=== PATIENT | male | born 1985 | race Caucasian/White ===

== ENCOUNTER 2019-10-07 02:50 | Emergency (ER) | payer MEDICAID ==
[2019-10-07] MEDS ORDERED: ONDANSETRON ODT 4 MG TAB ONE (03:35)
[2019-10-07] MEDS ORDERED: METOCLOPRAMIDE 10 MG TABLET ONE (03:43)
[2019-10-07] MEDS ORDERED: LIDOCAINE HCL 1% 20 ML VIAL ONE (04:13)
[2019-10-07] MEDS ORDERED: NEOMY SULF/BACITRA/POLYMYXIN B 1 EACH PACKET TP ONE (04:19)
[2019-10-07] MEDS ORDERED: SULFAMETHOX-TMP DS 800/160 TAB ONE (04:25)
== END 2019-10-07 04:34 | disposition home or self-care (01) ==
LOC: EDH 02:50
DX: S51.832A Puncture wound without foreign body of left forearm, initial encounter (principal); J45.909 Unspecified asthma, uncomplicated; Z72.0 Tobacco use; W45.8XXA Other foreign body or object entering through skin, initial encounter; Y93.89 Activity, other specified; Y92.89 Other specified places as the place of occurrence of the external cause; Y99.8 Other external cause status
CPT/HCPCS: 73090

== ENCOUNTER 2020-04-29 21:28 | Emergency (ER) | payer MEDICAID | END 2020-04-29 22:09 | disposition home or self-care (01) | LOC: EDH 21:28 | DX: Z02.83 Encounter for blood-alcohol and blood-drug test (principal); J45.909 Unspecified asthma, uncomplicated; Z53.21 Procedure and treatment not carried out due to patient leaving prior to being seen by health care provider ==

== ENCOUNTER 2021-04-13 18:11 | Emergency (ER) | payer MEDICAID, OTHER ==
[~2021-04-13] VITALS: Ht 177.8 cm; Wt 102.1 kg
[2021-04-13 18:14] VITALS: BP 147/86
[2021-04-13] MEDS ORDERED: KETOROLAC 30MG VIAL (30MG/ML) ONE (19:23)
[2021-04-13] MEDS ORDERED: KETOROLAC 30MG VIAL (30MG/ML) IM ONE (19:30)
[2021-04-13] MEDS ORDERED: ORPH-43 PO (19:34)
[2021-04-13] MEDS ORDERED: IBUP-2070 PO (19:34)
== END 2021-04-13 19:49 | disposition home or self-care (01) ==
LOC: EDH 18:11
DX: S40.021A Contusion of right upper arm, initial encounter (principal); Z79.1 Long term (current) use of non-steroidal anti-inflammatories (NSAID); X58.XXXA Exposure to other specified factors, initial encounter; Y93.89 Activity, other specified; Y92.89 Other specified places as the place of occurrence of the external cause; Y99.8 Other external cause status
CPT/HCPCS: 73060; 96372; 99283; J1885

== ENCOUNTER 2022-03-06 12:11 | Emergency (ER) | payer OTHER ==
[~2022-03-06] VITALS: Ht 177.8 cm; Wt 95.3 kg
[~2022-03-06 12:11] MED LIST: IBUP-2070 PO; ORPH-43 PO
[2022-03-06 12:13] VITALS: BP 139/82
[2022-03-06] MEDS ORDERED: GUAIFENESIN-DM 200/20 MG 10 ML PO ONE (12:30)
[2022-03-06] MEDS ORDERED: IBUPROFEN 800 MG TAB PO ONE (12:30)
[2022-03-06] MEDS ORDERED: ACETAMINOPHEN 500 MG TABLET PO ONE (12:30)
== END 2022-03-06 14:08 | disposition home or self-care (01) ==
LOC: EDH 12:11
DX: B34.9 Viral infection, unspecified (principal); Z20.822 Contact with and (suspected) exposure to COVID-19; Z79.1 Long term (current) use of non-steroidal anti-inflammatories (NSAID)
CPT/HCPCS: 99284; 87635; 87880; 87804 ×2; C9803

== ENCOUNTER 2023-05-23 12:30 | Emergency (ER) | payer OTHER ==
[~2023-05-23] VITALS: Ht 177.8 cm; Wt 102.1 kg
[~2023-05-23 12:30] MED LIST changes: -ORPH-43 PO; +ORPH100T4 PO
[2023-05-23 14:09] VITALS: BP 176/87; PULSE 95; RESP 20
[2023-05-23 14:35] LABS: RAPID GROUP A STREP negative (NEGATIVE)
[2023-05-23 14:42] LABS: SARS-CoV-2, RNA, NAAT NEGATIVE SARS CoV-2 (NEGATIVE)
[2023-05-23 14:47] LABS: INFLUENZA TYPE A Negative For Type A (NEGATIVE); INFLUENZA TYPE B Negative For Type B (NEGATIVE)
[2023-05-23] MEDS ORDERED: AMOX1TAB16 PO (16:58)
[2023-05-23] MEDS ORDERED: BENZ-39 PO (16:58)
[2023-05-23] MEDS ORDERED: IBUP-2077 PO (16:58)
[2023-05-23] MEDS ORDERED: AMOX/CLAV 875/125MG TAB PO ONE (17:00)
[2023-05-23] MEDS ORDERED: IBUPROFEN 800 MG TAB PO ONE (17:00)
== END 2023-05-23 17:43 | disposition home or self-care (01) ==
LOC: EDH 12:30
DX: J32.0 Chronic maxillary sinusitis (principal); B34.9 Viral infection, unspecified; J02.9 Acute pharyngitis, unspecified; F32.A Depression, unspecified; Z20.822 Contact with and (suspected) exposure to COVID-19; Z79.899 Other long term (current) drug therapy; Z98.890 Other specified postprocedural states
CPT/HCPCS: 87635; 87804; 87880

== ENCOUNTER 2023-08-30 10:25 | Emergency (ER) | payer OTHER ==
[~2023-08-30] VITALS: Ht 177.8 cm; Wt 103.0 kg
[~2023-08-30 10:25] MED LIST changes: +AMOX1TAB16 PO; +BENZ-39 PO; +IBUP-2077 PO
[2023-08-30 10:28] VITALS: BP 157/87; PULSE 86; RESP 18; O2SAT 96
[2023-08-30] MEDS: TETANUS/DIPHTHERIA TOXOID [ADULT] 0.5 ML VIAL IM ONE (11:47)
[2023-08-30 15:18] LABS: HIV 1&2 ANTIBODY Non-Reactive (Negative); HIV-1 p24 Antigen Non-Reactive (Negative)
[2023-08-31 04:17] LABS: HEPATITIS B CORE AB TOTAL Non-Reactive (Nonreactive); HEPATITIS C ANTIBODY Non-Reactive (Nonreactive)
[2023-09-01 15:10] LABS: HEPATITIS B SURFACE ANTIBODY Positive (Reactive)
== END 2023-08-30 12:02 | disposition home or self-care (01) ==
LOC: EDH 10:25
DX: S61.233A Puncture wound without foreign body of left middle finger without damage to nail, initial encounter (principal); X58.XXXA Exposure to other specified factors, initial encounter; Y93.89 Activity, other specified; Y92.89 Other specified places as the place of occurrence of the external cause; Y99.8 Other external cause status; Z79.899 Other long term (current) drug therapy; Z98.890 Other specified postprocedural states
CPT/HCPCS: 36415; 86701; 86704; 86706; 86803; 87390; 90471; 90714

== ENCOUNTER 2024-01-12 11:52 | Emergency (ER) | payer OTHER ==
[~2024-01-12] VITALS: Ht 177.8 cm; Wt 95.3 kg
[2024-01-12] MEDS: cefTRIAXone 1G VIAL IVPB ONE (13:14)
[2024-01-12] MEDS ORDERED: SULF1TAB42 PO (13:39)
[2024-01-12 13:50] VITALS: BP 123/78; PULSE 78; RESP 18; TEMP 98.2; O2SAT 98
== END 2024-01-12 13:48 | disposition home or self-care (01) ==
LOC: EDH 11:52
DX: M70.22 Olecranon bursitis, left elbow (principal); Z79.899 Other long term (current) drug therapy; Z98.890 Other specified postprocedural states; Y93.89 Activity, other specified
CPT/HCPCS: 99284; 96365; J0696

== ENCOUNTER 2024-01-15 12:29 | Inpatient (IN) | payer OTHER ==
[~2024-01-15] VITALS: Ht 177.8 cm; Wt 94.1 kg
[~2024-01-15 12:29] MED LIST changes: +SULF1TAB42 PO
[2024-01-15 13:18] LABS: BASOPHILS % (AUTO) 1.1 % (0.0-5.0); EOSINOPHILS # (AUTO) 0.44 K/uL (0.00-0.70); EOSINOPHILS % (AUTO) 4.8 % (0.0-8.0); HEMATOCRIT 52.7 % (42-54); IMMATURE GRANULOCYTE ABSOLUTE 0.03 K/uL (0-1); LYMPHOCYTES # (AUTO) 1.6 K/uL (1.0-4.8); LYMPHOCYTES % (AUTO) 16.8 % (21.0-51.0); MEAN CORPUSCULAR HEMOGLOBIN 31.3 pg (27.0-33.0); MEAN CORPUSCULAR HGB CONC 34.2 g/dL (32.0-36.0); MEAN CORPUSCULAR VOLUME 91.7 fL (79-99); MONOCYTES # (AUTO) 0.9 K/uL (0.1-1.0); MONOCYTES % (AUTO) 9.2 % (3.0-13.0); NEUTROPHILS # (AUTO) 6.3 K/uL (1.8-7.7); NEUTROPHILS % (AUTO) 67.8 % (40.0-77.0); PLATELET COUNT (AUTO) 243 K/uL (130-400); RED BLOOD CELL COUNT(AUTO) 5.75 MIL/uL (4.50-6.20); RED CELL DISTRIBUTION WIDTH 13.4 % (11.0-15.5); WHITE BLOOD COUNT (AUTO) 9.2 K/uL (4.8-10.8)
[2024-01-15 13:20] VITALS: BP 134/78; PULSE 73; RESP 18; TEMP 98
[2024-01-15 13:24] LABS: INR 0.98 (0.85-1.15); PROTHROMBIN TIME 10.6 SEC (9.6-11.6)
[2024-01-15] MEDS ORDERED: DiphenhydrAMINE HCL 25 MG CAPSULE PO PRN (13:30)
[2024-01-15] MEDS ORDERED: HYDROcodone/APAP 5/325 1 TAB TABLET PO PRN ×2 (13:30)
[2024-01-15] MEDS ORDERED: MAG/ALUM/SIMETH 30 ML UDCUP PO PRN (13:30)
[2024-01-15] MEDS ORDERED: FAMOTIDINE 20MG VIAL IV PRN (13:30)
[2024-01-15] MEDS ORDERED: NITROGLYCERIN 0.4 MG SL TAB SL PRN (13:30)
[2024-01-15] MEDS ORDERED: ondanSETRON 4MG INJ IV PRN (13:30)
[2024-01-15] MEDS ORDERED: guaiFENesin-DM 200/20MG 10ML PO PRN (13:30)
[2024-01-15] MEDS ORDERED: DiphenhydrAMINE HCL 50 MG/ML VIAL IV PRN (13:30)
[2024-01-15] MEDS ORDERED: acetaMINOPHEN 325 MG TAB PO PRN (13:30)
[2024-01-15] MEDS ORDERED: hydroMORPHone 0.5 MG SYG (0.5MG/0.5ML) IVP PRN (13:30)
[2024-01-15] MEDS ORDERED: LACTULOSE 20 GM/30 ML UDCUP PO PRN (13:30)
[2024-01-15 13:31] LABS: HEMOGLOBIN A1C 4.7 % (4.0-6.0)
[2024-01-15 13:32] LABS: % IRON SATURATION 31.2 % (30-44)
[2024-01-15 13:41] LABS: ALBUMIN 4.1 g/dL (3.5-5.0); BILIRUBIN,TOTAL 0.5 mg/dL (0.2-1.0); CREATININE 1.2 mg/dL (0.5-1.3); PHOSPHORUS 2.9 mg/dL (2.5-4.9); THYROID STIMULATING HORMONE 3.38 uIU/mL (0.36-3.74); TOTAL PROTEIN, SERUM 7.7 g/dL (6.0-8.3)
[2024-01-15 14:03] LABS: MAGNESIUM 1.7 mg/dL (1.80-2.40)
[2024-01-15] MEDS: ZOSYN 3.375GM+NS 50ML 50 ML IV SCH (14:48)
[2024-01-15] MEDS: 0.9%NACL 1000ML 1,000 ML IV SCH (14:48)
[2024-01-15] MEDS: acetaMINOPHEN 325 MG TAB PO PRN (15:00)
[2024-01-15 16:00] VITALS: BP 153/74; PULSE 73; RESP 18; TEMP 98
[2024-01-15] MEDS: MAGNESIUM 2GM PREMIX 50ML 50 ML IV PRN (18:38)
[2024-01-15 20:00] VITALS: BP 137/86; PULSE 74; RESP 18; TEMP 97.7; O2SAT 96
[2024-01-15] MEDS: FAMOTIDINE 20MG TAB PO SCH (20:48)
[2024-01-15] MEDS: ketOROlac 15MG/ML VIAL (15MG/ML) IV PRN (23:07)
[2024-01-16] VITALS (7 sets, daily range): BP systolic 111–148; BP diastolic 64–91; PULSE 61–76; RESP 18–20; TEMP 97.7–98.3; O2SAT 96–97
[2024-01-16] MEDS: ENOXAPARIN SODIUM 40 MG/0.4 ML SYRINGE SQ SCH (09:00)
[2024-01-17] VITALS: BP 128/71; PULSE 71; RESP 18; TEMP 97.6
[2024-01-17 04:00] VITALS: BP 122/77; PULSE 71; RESP 18; TEMP 97.7
[2024-01-17 08:00] VITALS: BP 125/74; PULSE 61; RESP 18; TEMP 98; O2SAT 97
[2024-01-17] MEDS ORDERED: LEVO-70 PO (11:20)
== END 2024-01-17 14:15 | disposition home or self-care (01) | DRG 603 ==
LOC: EDH 12:29 → EDHIP 13:14 → 4CH 13:20
PROVIDERS: ADMIT Internal Medicine; ATTEND Internal Medicine
PROC: 0R9M3ZZ Drainage of Left Elbow Joint, Percutaneous Approach (ICD-10-PCS; principal; 2024-01-15)
DX: L03.114 Cellulitis of left upper limb (principal)
CPT/HCPCS: 36415; 73070; 76882; 80053; 83036; 83540; 83550; 83605; 83735; 84100; 84145; 84443; 85025; 85610; 85730; 87040; G0378; J1650; J1885; J2543; J3475

== ENCOUNTER → 2024-02-16 | Outpatient (CLI) | payer OTHER ==
[~2024-02-16] MED LIST changes: -AMOX1TAB16 PO; -BENZ-39 PO; -IBUP-2070 PO; -IBUP-2077 PO; +LEVO-70 PO; -ORPH100T4 PO; -SULF1TAB42 PO
[2024-02-16 08:01] LABS: BASOPHILS # (AUTO) 0.11 K/uL (0.00-0.20); BASOPHILS % (AUTO) 0.9 % (0.0-5.0); EOSINOPHILS # (AUTO) 0.36 K/uL (0.00-0.70); EOSINOPHILS % (AUTO) 3.1 % (0.0-8.0); HEMATOCRIT 52.2 % (42-54); IMMATURE GRANULOCYTE ABSOLUTE 0.06 K/uL (0-1); LYMPHOCYTES # (AUTO) 1.5 K/uL (1.0-4.8); LYMPHOCYTES % (AUTO) 12.5 % (21.0-51.0); MEAN CORPUSCULAR HEMOGLOBIN 31.4 pg (27.0-33.0); MEAN CORPUSCULAR HGB CONC 34.3 g/dL (32.0-36.0); MEAN CORPUSCULAR VOLUME 91.6 fL (79-99); MONOCYTES # (AUTO) 0.9 K/uL (0.1-1.0); MONOCYTES % (AUTO) 7.9 % (3.0-13.0); NEUTROPHILS # (AUTO) 8.7 K/uL (1.8-7.7); NEUTROPHILS % (AUTO) 75.1 % (40.0-77.0); PLATELET COUNT (AUTO) 244 K/uL (130-400); RED CELL DISTRIBUTION WIDTH 12.9 % (11.0-15.5); WHITE BLOOD COUNT (AUTO) 11.6 K/uL (4.8-10.8)
[2024-02-16 08:17] LABS: HEMOGLOBIN A1C 4.9 % (4.0-6.0)
[2024-02-16 08:46] LABS: ALANINE AMINOTRANSFERASE 35 U/L (12-78); ALBUMIN 4.1 g/dL (3.5-5.0); ASPARTATE AMINOTRANSFERASE 26 U/L (10-37); BILIRUBIN,TOTAL 0.6 mg/dL (0.2-1.0); CARBON DIOXIDE 27 mmol/L (21-32); CHLORIDE 103 mmol/L (101-111); CHOLESTEROL 168 mg/dL (<200); CREATININE 1.2 mg/dL (0.5-1.3); GLOMERULAR FILTR. RATE CALC 80 mL/min (>90); GLUCOSE,RANDOM 94 mg/dL (70-105); HDL CHOLESTEROL 38 mg/dL (29-71); LDL DIRECT 110 mg/dL (0-99); POTASSIUM 4.1 mmol/L (3.5-5.1); SODIUM SERUM 137 mmol/L (136-145); THYROID STIMULATING HORMONE 4.03 uIU/mL (0.36-3.74); TOTAL PROTEIN, SERUM 7.5 g/dL (6.0-8.3); TRIGLYCERIDES 223 mg/dL (30-200); UREA NITROGEN, BLOOD 16 mg/dL (7-18); URIC ACID 6.6 mg/dL (2.6-7.2)
[2024-02-16 09:22] LABS: ERYTHROCYTE SEDIMENTATION RATE 1 MM/HR (0-15)
[2024-02-17 07:21] LABS: RHEUMATOID ARTHRITIS FACTOR <10.0 IU/mL (<14.0)
== END | disposition home or self-care (01) ==
LOC: LAB 07:17
PROVIDERS: ATTEND Internal Medicine
DX: M70.22 Olecranon bursitis, left elbow (principal)
CPT/HCPCS: 36415; 80053; 80061; 82306; 82607; 83036; 84402; 84403; 84443; 84550; 85025; 85651; 86038; 86140; 86215; 86235; 86431

== ENCOUNTER 2024-04-05 05:57 | Day surgery (SDC) | payer OTHER ==
[2024-04-02 12:01] LABS: BASOPHILS # (AUTO) 0.11 K/uL (0.00-0.20); BASOPHILS % (AUTO) 1.6 % (0.0-5.0); EOSINOPHILS # (AUTO) 0.41 K/uL (0.00-0.70); EOSINOPHILS % (AUTO) 6.1 % (0.0-8.0); HEMATOCRIT 47.6 % (42-54); IMMATURE GRANULOCYTE ABSOLUTE 0.02 K/uL (0-1); LYMPHOCYTES # (AUTO) 2.3 K/uL (1.0-4.8); LYMPHOCYTES % (AUTO) 34.6 % (21.0-51.0); MEAN CORPUSCULAR HEMOGLOBIN 31.4 pg (27.0-33.0); MEAN CORPUSCULAR HGB CONC 34.2 g/dL (32.0-36.0); MEAN CORPUSCULAR VOLUME 91.7 fL (79-99); MONOCYTES # (AUTO) 0.7 K/uL (0.1-1.0); MONOCYTES % (AUTO) 9.9 % (3.0-13.0); NEUTROPHILS # (AUTO) 3.2 K/uL (1.8-7.7); NEUTROPHILS % (AUTO) 47.5 % (40.0-77.0); PLATELET COUNT (AUTO) 259 K/uL (130-400); RED BLOOD CELL COUNT(AUTO) 5.19 MIL/uL (4.50-6.20); RED CELL DISTRIBUTION WIDTH 12.3 % (11.0-15.5); WHITE BLOOD COUNT (AUTO) 6.7 K/uL (4.8-10.8)
[2024-04-02 12:07] LABS: INR 1.03 (0.85-1.15); PROTHROMBIN TIME 11.1 SEC (9.6-11.6)
[2024-04-02 12:08] LABS: PARTIAL THROMBOPLASTIN TIME 27.6 SEC (26.3-35.5)
[2024-04-04 15:44] VITALS: BP 146/72; PULSE 53; RESP 16; TEMP 97.8
[2024-04-05] VITALS (14 sets, daily range): BP systolic 103–126; BP diastolic 57–72; PULSE 52–65; RESP 14–18; TEMP 97.3–98.2
[~2024-04-05] VITALS: Ht 177.8 cm; Wt 93.0 kg
[~2024-04-05 05:57] MED LIST changes: -LEVO-70 PO; +VITAMIN D PO
[2024-04-05] MEDS ORDERED: ondanSETRON 4MG INJ ONE (06:42)
[2024-04-05] MEDS ORDERED: rocuRONium bROMide 10MG/1ML 5ML VL ONE (06:42)
[2024-04-05] MEDS ORDERED: MIDAZOLAM HCL 1 MG/ML 2ML VIAL ONE ×2 (06:42→07:30)
[2024-04-05] MEDS ORDERED: proPOFol 10 MG/ML 20ML VIAL IV ONE (06:42)
[2024-04-05] MEDS ORDERED: dexaMETHasone SOD PHOSPHATE 10MG/ML 1ML VIAL ONE (06:43)
[2024-04-05] MEDS ORDERED: FENTanyl CITRate PF 50 MCG/1 ML 2ML VIAL ONE ×2 (06:43→09:12)
[2024-04-05] MEDS ORDERED: FAMOTIDINE 20MG VIAL IV ONE (06:53)
[2024-04-05] MEDS ORDERED: acetaMINOPHEN 100 ML ONE (06:53)
[2024-04-05] MEDS ORDERED: KETO10TA2 PO (07:27)
[2024-04-05] MEDS: ceFAZolin SODIUM 2 GM VIAL ONE (08:29)
[2024-04-05] MEDS: LACTATED RINGERS 1000ML 1,000 ML IV ONE (08:30)
[2024-04-05] MEDS: MEPERIDINE-PF 25 MG/ML SYG ONE (09:42)
--- NOTE | 2024-04-05 10:50 | NUR ---
arrives A & O x4, denies distress, VSS, left arm axilla block, ice pack applied. left elbow telfa dsg covered w op-site, C,D & I. Left arm sling suplied, follow up & D?C instructs verbalized as understood per pt/ significant other at bedside. distal [employer] brisk, all belongings at bedside. PIV HL dc'd w tip intact, denies question or necessity. via w/c to friends car & care in no noted or verbalized distress at 1050.
--- NOTE | 2024-04-05 17:24 | OP ---
Operative Note: DATE OF PROCEDURE: 04/05/24 SURGEON: NATASHA STARR MD BOOK EDITOR: Jordyn Abraham ANESTHESIA: General and axillary block ANESTHESIOLOGIST/BI DATA ARCHITECT: Bimal Gillespie CRNA PREOPERATIVE DIAGNOSIS: Left elbow olecranon bursitis POSTOPERATIVE DIAGNOSIS: Left elbow olecranon bursitis PROCEDURE: Left olecranon bursectomy ESTIMATED BLOOD LOSS: <5 cc INDICATIONS: 38-year-old male with recent history of septic left olecranon bursitis. After management of this with antibiotics, the patient had residual mild swelling but mostly painful palpable tissue in the region of the olecranon bursa. After discussion of the risks, benefits, and alternatives the patient voluntarily agreed to undergo the aforementioned procedure indicating in preoperative holding the regions in the right arm that were bothersome. DESCRIPTION OF PROCEDURE: Patient was properly identified in the preoperative holding area. Surgical site marking was verified and surgery consent reviewed. The patient was then taken to the operating room and placed in supine position on the OR table. After induction of general anesthesia, preoperative antibiotics were given, all bony prominences were well-padded, and a well padded tourniquet was applied but not inflated at this time. The left upper extremity was then prepped and draped in usual sterile fashion. Surgical time out was done veri fying correct surgery, side, site, and location to be performed. We then began the procedure by exsanguinating the arm with an Esmarch and inflating the tourniquet to 250 mm Hg. We then made an approximately 6 cm long posterior midline incision, cheating slightly anteriorly in the region of the ulnar nerve, using a 15 blade. Here we came sharply down through the skin and subcutaneous tissue onto the olecranon bursa. We began elevating the flaps anteriorly and posteriorly using the Metzenbaum scissors, releasing the bursal tissue from the skin and subcutaneous layer with tenotomies. Once we came around the bursa in this manner we then began elevating it off of the fascia and periosteum of the ulna using a combination of tenotomies and 15 blade. We were able to excise a discrete mass but also tissue that appeared to be bursal tissue with the appearance of some thicker scar tissue inside. The bursa appeared to be about 3 x 3 x 3 cm. At this point we thoroughly irrigated out the wound with normal saline. The subcutaneous tissue was closed using 2-0 Vicryl. A running subcuticular 3-0 Monocryl for the skin with Dermabond applied over the top. Sterile soft dressing was applied. The tourniquet was then deflated. The patient was awakened from anesthesia and taken to the recovery room in stable condition. NATASHA STARR MD Apr 05, 2024 17:24
== END 2024-04-05 10:50 | disposition home or self-care (01) ==
LOC: DAH 05:57
PROVIDERS: ATTEND Student in an Organized Health Care Education/Training Program
DX: M70.22 Olecranon bursitis, left elbow (principal); K21.9 Gastro-esophageal reflux disease without esophagitis; Z79.01 Long term (current) use of anticoagulants; Z79.899 Other long term (current) drug therapy; Z80.7 Family history of other malignant neoplasms of lymphoid, hematopoietic and related tissues; Z82.3 Family history of stroke; Z87.891 Personal history of nicotine dependence; Z98.890 Other specified postprocedural states
CPT/HCPCS: 80048; 85025; 85610; 85730; 36415; 24105; 64415; 88304; A4663; J7120 ×2; J3490 ×2; J3010 ×2; J1100; J2250; J2704; J2405; J2175; J0690; A4649; A4930 ×2; A4215; A4213; A4222; A4221; A4216; A4223 ×2; A4600

== ENCOUNTER → 2024-04-24 | Outpatient (CLI) | payer OTHER ==
[~2024-04-24] MED LIST changes: +KETO10TA2 PO
[2024-04-24 10:50] LABS: BASOPHILS % (AUTO) 0.9 % (0.0-5.0); EOSINOPHILS # (AUTO) 0.32 K/uL (0.00-0.70); HEMATOCRIT 45.3 % (42-54); IMMATURE GRANULOCYTE ABSOLUTE 0.05 K/uL (0-1); LYMPHOCYTES # (AUTO) 2.2 K/uL (1.0-4.8); LYMPHOCYTES % (AUTO) 20.6 % (21.0-51.0); MEAN CORPUSCULAR HEMOGLOBIN 30.7 pg (27.0-33.0); MEAN CORPUSCULAR HGB CONC 34.2 g/dL (32.0-36.0); MEAN CORPUSCULAR VOLUME 89.7 fL (79-99); MONOCYTES # (AUTO) 0.8 K/uL (0.1-1.0); MONOCYTES % (AUTO) 7.1 % (3.0-13.0); NEUTROPHILS # (AUTO) 7.4 K/uL (1.8-7.7); NEUTROPHILS % (AUTO) 67.9 % (40.0-77.0); PLATELET COUNT (AUTO) 280 K/uL (130-400); RED BLOOD CELL COUNT(AUTO) 5.05 MIL/uL (4.50-6.20); RED CELL DISTRIBUTION WIDTH 12.4 % (11.0-15.5); WHITE BLOOD COUNT (AUTO) 10.8 K/uL (4.8-10.8)
[2024-04-24 12:16] LABS: ERYTHROCYTE SEDIMENTATION RATE 5 MM/HR (0-15)
[2024-04-24 13:21] LABS: HEMOGLOBIN A1C 5.4 % (4.0-6.0)
[2024-04-24 14:48] LABS: ALBUMIN 4.2 g/dL (3.5-5.0); BILIRUBIN,TOTAL 0.5 mg/dL (0.2-1.0); POTASSIUM 3.8 mmol/L (3.5-5.1); THYROID STIMULATING HORMONE 1.64 uIU/mL (0.36-3.74); TOTAL PROTEIN, SERUM 7.5 g/dL (6.0-8.3); URIC ACID 6.5 mg/dL (2.6-7.2)
[2024-04-25 08:12] LABS: RHEUMATOID ARTHRITIS FACTOR <10.0 IU/mL (<14.0)
== END | disposition home or self-care (01) ==
LOC: LAB 09:48
PROVIDERS: ATTEND Internal Medicine
DX: Z13.1 Encounter for screening for diabetes mellitus (principal); Z13.220 Encounter for screening for lipoid disorders; Z13.29 Encounter for screening for other suspected endocrine disorder; M70.22 Olecranon bursitis, left elbow; R53.83 Other fatigue
CPT/HCPCS: 36415; 80053; 80061; 82306; 82607; 83036; 84402; 84403; 84443; 84550; 85025; 85651; 86038; 86140; 86215; 86235; 86431

== ENCOUNTER 2024-05-05 08:54 | Emergency (ER) | payer OTHER ==
[~2024-05-05] VITALS: Ht 177.8 cm; Wt 92.8 kg
[2024-05-05] MEDS: ORPHENADRINE 60MG/2ML IM ONE (09:20)
[2024-05-05] MEDS: ketOROlac 30MG VIAL (30MG/ML) IM ONE (09:20)
--- NOTE | 2024-05-05 09:24 | ERN ---
General Chief Complaint: Knee Injury/Swelling Stated Complaint: RIGHT KNEE INJURY Time Seen by MD: 08:56 Source: patient History of Present Illness Initial Comments Patient is a 39-year-old male coming in to be evaluated for right knee pain. Per patient he has had a history of a patellar dislocation was evaluated by Dr. Escalante in his pending further evaluation. Per patient this flare-up has been ongoing for four days. He states that it is painful on flexion and extension. Allergies: Coded Allergies: No Known Drug Allergies (Unverified Allergy, Unknown, 04/13/21) Home Meds Active Scripts Methocarbamol (Robaxin) 750 Mg Tab, 1 TAB PO BID for 7 Days, #14 TAB 0 Refills Prov:BHAVESH THOMPSON MD 05/05/24 Naproxen (Naproxen) 375 Mg Tablet.dr, 375 MG PO BID for 10 Days, #20 TAB Prov:BHAVESH THOMPSON MD 05/05/24 Ketorolac Tromethamine (Ketorolac Tromethamine) 10 Mg Tablet, 1 TAB PO Q6HPRN PRN for pain for 5 Days, #20 TAB 0 Refills Prov:NATASHA ESCALANTE MD 04/05/24 Reported Medications [Vitamin D] No Conflict Check, 28099 UNIT PO WEEKLY 04/04/24 Past Medical History Past Medical History: No Pertinent History Past Surgical History: Other Surgical History Other: SEPTUM REPAIR Family History Family History: Negative Social History Social History: Lives with family ROS Dictation CONSTITUTIONAL: No chills, no fever, no weakness, no diaphoresis, no malaise. HEAD/FACE: No signs of trauma. EENT: No eye pain, no blurred vision, no tearing, no double vision, no ear pain, no ear discharge, no nose pain, no nasal congestion, no throat pain, no throat swelling, no mouth pain. RESPIRATORY: No cough, no orthopnea, no SOB, no stridor, no wheezing. CARDIOVASCULAR: No chest pain, no edema, no palpitations, no syncope. GASTROINTESTINAL/ABDOMINAL: No abdominal pain, no constipation, no diarrhea, no nausea, no vomiting. GENITOURINARY: No abnormal discharge, no dysuria, no frequent urination, no hematuria. No complaints of pain in the genitals. MUSCULOSKELETAL: No back pain, no gout, joint pain, joint swelling, no muscle pain, no muscle stiffness, no neck pain. INTEGUMENTARY: No change in color, no change in hair/nails, no dryness, no lesion, no lumps, no rash. NEUROLOGICAL/PSYCH: No anxiety, not depressed, no emotional problem, no headache, no numbness, no pre-existing deficit, no history of seizures, no tremors, no weakness. HEMATOLOGIC/LYMPHATIC: Not anemic, no history of blood clots, no apparent bleeding, no bruising, glands not swollen. All Systems Negative, Except as Noted. Physical Exam Physical Exam Dictation VITAL SIGNS: Reviewed. GENERAL APPEARANCE: Alert, oriented x3, no acute distress, obese. HEAD AND FACE: Non-traumatic. EYES: PERRL, pink conjunctivas, eyelid no trauma, anterior chamber clear. EARS: Pinnas intact and no signs of trauma or erythema. Ear canals clear and no discharge. TMs no erythema. NOSE: No discharge, no bleeding. OROPHARYNX: Mouth normal, teeth no caries, tongue pink. Pharynx clear, no erythema. Tonsils no exudates, no abscesses noted. Mucous membrane moist. NECK: Supple, non-tender, no thyromegaly, no masses, no JVD, no bruits. BREAST: Deferred. CHEST: No tenderness, no crepitus, no paradoxical movement, no retractions. LUNGS: Clear, well-ventilated, symmetric, no rales, no wheezing, no rhonchi, no stridor, good breath sounds bilaterally. HEART: Regular rate, regular rhythm, no murmur, no gallops. VASCULAR: No peripheral edema. ABDOMEN: Soft, positive bowel sounds, nondistended, no guarding, nontender, no rebound, no masses no hepatomegaly, no splenomegaly, no Mayberry's sign, no hernias. RECTAL: Deferred. GENITAL: Deferred. NEUROLOGICAL: Normal speech, gross motor function intact, gross sensory function intact. MUSCULOSKELETAL: Neck nontender, full range of motion, back nontender, full range of motion. EXTREMITIES: Nontender, full range of motion. Right knee pain on palpation of the lateral aspect, patella in place SKIN: Color pink, dry, no turgor, no rash, no lacerations, no abrasions, no contusions. LYMPHATICS: Deferred. Results Laboratory and Microbiology Labs Reviewed?: Yes EKG/XRAY/US/CT/MRI X-RAY Comment [facility] [id number] [place] [address] IMAGING REPORT Signed PATIENT: YO GARAY MR#: [id number] : 1985 SEX: M AGE: 39 LOCATION: [facility] ORDER 6 STATUS: REG ER REPORT#: [id number] SERVICE 5 REASON: pain ORDERING PHYSICIAN: BHAVESH THOMPSON MD PROCEDURE: KNEE 3V RT - KNEE 3VWS RT KNEE 3VWS RT REASON: pain TECHNIQUE: 3 views were obtained. FINDINGS: There is no evidence of fracture or dislocation. There is no joint effusion. The soft tissues appear unremarkable. There is no evidence of a radiopaque foreign body. IMPRESSION: No acute findings. DICTATED BY: KURT JORGE MD DATE: 05/05/24949 ELECTRONICALLY SIGNED BY: KURT JORGE MD DATE: 05/05/24954 MDM MDM: Differential diagnosis: Right patellar dislocation, knee dislocation, knee strain, meniscus tear, Patient is a 39-year-old male coming in to be evaluated for right knee pain. X- ray did not disclose acute findings. Knee immobilizer in place. Patient states he has a follow up visit with Dr. Escalante the docket specialist. Because of the side called Dr. Escalante but was not able to get a hold ever since he was in surgery. Patient will follow up with Dr. Escalante for ongoing management and possible MRI in the future. I also advised rice technique to help with the inflammation. ED Course Orders Procedure Category Date Status Time Orphenadrine Citrate PHA 05/05/24 Complete (Norflex) 09:30 Ketorolac PHA 05/05/24 Complete Tromethamine 30mg/Ml 09:30 Knee Immobilizer BIPIN 05/05/24 In Process 09:07 Knee 3vws Rt RAD 05/05/24 Resulted 09:06 Current Medications Medications (Trade) Dose Ordered Sig/Turner Route PRN Reason Start Time Stop Time Status Last Admin Dose Admin Ketorolac Tromethamine (toRADol) 30 mg ONCE ONCE IM 05/05/24 09:30 05/05/24 09:31 DC 05/05/24 09:20 Orphenadrine Citrate (Norflex) 60 mg ONCE ONCE IM 05/05/24 09:30 05/05/24 09:31 DC 05/05/24 09:20 Vital Signs Date Time Temp Pulse Resp B/P (MAP) Pulse Ox O2 Delivery O2 Flow Rate FiO2 05/05/24 09:07 98.4 78 18 145/83 100 Room Air* 0 05/05/24 08:56 98.2 68 16 135/76 98 Room Air* 0 05/05/24 08:55 68 16 135/76 100 Room Air 0 DX & DISP Disposition: Discharge Departure Impression: Primary Impression: Knee strain Condition: Stable Scripts Methocarbamol (Robaxin) 750 Mg Tab 1 TAB PO BID for 7 Days, #14 TAB 0 Refills Prov: BHAVESH THOMPSON MD 05/05/24 Naproxen (Naproxen) 375 Mg Tablet.dr 375 MG PO BID for 10 Days, #20 TAB Prov: BHAVESH THOMPSON MD 05/05/24 Additional Instructions: FOLLOW-UP WITH PRIMARY CARE PROVIDER IN 1 TO 2 DAYS. TAKE MEDICATIONS DIRECTED HERE IN THE EMERGENCY ROOM. OKAY TO CONTINUE HOME MEDICATIONS UNLESS OTHERWISE DISCUSSED DURING YOUR VISIT IN THE EMERGENCY ROOM TODAY. RETURN TO YOUR NEAREST EMERGENCY ROOM IF SYMPTOMS WORSEN OR IF THERE IS NO IMPROVEMENT. CALL 911 IF YOU NEED IMMEDIATE ASSISTANCE. TAKE TYLENOL [id number] NEEDED AND IF NO CONTRAINDICATIONS ARE PRESENT. INCREASE ORAL HYDRATION. A WOUND CULTURE OR URINE CULTURE WAS ORDERED HERE IN THE EMERGENCY ROOM DEPARTMENT PLEASE FOLLOW-UP WITH PRIMARY CARE PROVIDER AND ADVISE THEM TO GET REPEAT PORTS FROM OUR FACILITY. IF YOU HAD ANY KEANU WRAP/SPLINTS THAT WERE APPLIED HERE, PLEASE DO NOT REMOVE THEM UNTIL YOU SEE YOUR PRIMARY CARE OR SPECIALTY. Referrals: Referrals: JOE NICOLE MD (PCP) NATASHA ESCALANTE MD Time of Disposition: 10:29 BHAVESH THOMPSON MD May 05, 2024 09:24
--- NOTE | 2024-05-05 09:55 | HMCIMG ---
KNEE 3VWS RT REASON: pain TECHNIQUE: 3 views were obtained. FINDINGS: There is no evidence of fracture or dislocation. There is no joint effusion. The soft tissues appear unremarkable. There is no evidence of a radiopaque foreign body. IMPRESSION: No acute findings.
[2024-05-05] MEDS ORDERED: NAPR-1505 PO (10:30)
[2024-05-05] MEDS ORDERED: METH-662 PO (10:30)
[2024-05-05 10:36] VITALS: BP 126/72; PULSE 68; RESP 18; TEMP 98.4; O2SAT 98
== END 2024-05-05 10:51 | disposition home or self-care (01) ==
LOC: EDH 08:54
DX: S86.911A Strain of unspecified muscle(s) and tendon(s) at lower leg level, right leg, initial encounter (principal); X58.XXXA Exposure to other specified factors, initial encounter; Y93.89 Activity, other specified; Y92.89 Other specified places as the place of occurrence of the external cause; Y99.8 Other external cause status
CPT/HCPCS: 99284; 29505; 73562; 96372 ×2; J1885; J2360

== ENCOUNTER → 2024-05-09 | Outpatient (CLI) | payer OTHER ==
[~2024-05-09] MED LIST changes: +METH-662 PO; +NAPR-1505 PO
--- NOTE | 2024-05-09 14:05 | HMCIMG ---
Exam Type: MR KNEE RIGHT WO Clinical Information: PAIN Comparison: None Technique: MRI of the knee was done with triplane localizer, axial T2 as well as sagittal proton density T2, T1, and fat-saturated T2. In addition, coronal T1 and coronal fat-saturated spin-echo sequences are available for review. \par FINDINGS: There is a linear tear of the posterior horn of the lateral meniscus with inferior articular surface involvement. There is a linear tear of the anterior horn of the lateral meniscus as well, also with inferior articular surface involvement. No other meniscal tears are present. Moderate joint effusion is identified. No bony abnormalities are seen. The articular cartilage is preserved. The cruciate and collateral ligaments are intact. No periarticular soft tissue abnormalities are seen. There are no other gross abnormalities. IMPRESSION: Lateral meniscal tears as noted. Joint effusion.
== END | disposition home or self-care (01) ==
LOC: RAH 13:03
PROVIDERS: ATTEND Internal Medicine
DX: S83.281A Other tear of lateral meniscus, current injury, right knee, initial encounter (principal); M23.91 Unspecified internal derangement of right knee; M25.461 Effusion, right knee; X58.XXXA Exposure to other specified factors, initial encounter; Y93.89 Activity, other specified; Y92.89 Other specified places as the place of occurrence of the external cause; Y99.8 Other external cause status
CPT/HCPCS: 73721

== ENCOUNTER → 2025-04-04 | Outpatient (CLI) | payer OTHER ==
[~2025-04-04] MED LIST changes: +ACET-2079 PO; +NAPR-1194 PO
[2025-04-04 10:27] LABS: IMMATURE GRANULOCYTE ABSOLUTE 0.02 K/uL (0-1); NUCLEATED RED BLOOD CELLS 0.0 % (0.0-0.19); PLATELET COUNT (AUTO) 249 K/uL (130-400); RED BLOOD CELL COUNT(AUTO) 4.97 MIL/uL (4.50-6.20); RED CELL DISTRIBUTION WIDTH 12.9 % (11.0-15.5); WHITE BLOOD COUNT (AUTO) 8.2 K/uL (4.8-10.8)
[2025-04-04 10:33] LABS: APPEARANCE,URINE CLEAR (CLEAR); GLUCOSE, URINE (UA) NEGATIVE (NEGATIVE); LEUKOCYTE ESTERASE ,URINE NEGATIVE Leu/uL (NEGATIVE); NITRATE,URINE NEGATIVE (NEGATIVE); OCCULT BLOOD,URINE NEGATIVE (NEGATIVE)
[2025-04-04 10:43] LABS: ADD UA MICROSCOPIC NO
[2025-04-04 11:14] LABS: ASPARTATE AMINOTRANSFERASE 19.0 U/L (10-37); CREATININE 1.2 mg/dL (0.5-1.3); GLOMERULAR FILTR. RATE CALC 79.0 mL/min (>90); GLUCOSE,RANDOM 86.0 mg/dL (70-105); LDL DIRECT 119.0 mg/dL (0-99); SODIUM SERUM 140.0 mmol/L (136-145); TOTAL PROTEIN, SERUM 7.1 g/dL (6.0-8.3); UREA NITROGEN, BLOOD 11.0 mg/dL (7-18)
== END | disposition home or self-care (01) ==
LOC: LAB 09:53
PROVIDERS: ATTEND Internal Medicine
DX: E29.1 Testicular hypofunction (principal); J06.9 Acute upper respiratory infection, unspecified; M23.90 Unspecified internal derangement of unspecified knee; R53.83 Other fatigue; Z13.1 Encounter for screening for diabetes mellitus; Z13.220 Encounter for screening for lipoid disorders
CPT/HCPCS: 36415; 80053; 80061; 81003; 82043; 82247; 82248; 82306; 82570; 82607; 83036; 84402; 84403; 84443; 84550; 85025